=== PATIENT | female | born 1980 | race Caucasian/White ===

== ENCOUNTER 2020-01-21 09:30 | Inpatient (IN) ==
[2020-01-21] MEDS ORDERED: PROMETHAZINE 25 MG/ML VIAL IV PRN (10:09)
[2020-01-21] MEDS ORDERED: IPRATROPIUM/ALBUTEROL 3 ML AMPUL.NEB NEB PRN (10:09)
[2020-01-21] MEDS ORDERED: LOPERAMIDE 2 MG CAPSULE PO PRN (10:12)
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
[2020-01-21] MEDS: NICOTINE 21 MG PATCH TOPICAL SCH (11:00)
[2020-01-21 11:13] LABS: Basophils # (Auto) 0.05 K/mcL (0.00-0.30); Basophils % (Auto) 0.6 % (0.0-2.0); Eosinophils # (Auto) 0.08 K/mcL (0.00-0.70); Granulocytes % (Auto) 59.2 % (38.0-78.0); Hematocrit 41.6 % (34.1-44.9); Hemoglobin 14.5 g/dL (11.2-15.7); Lymphocytes # (Auto) 2.67 K/mcL (1.50-4.80); Lymphocytes % (Auto) 32.4 % (15.5-49.0); Mean Cell Volume 92.9 fL (80.0-100.0); Mean Corpuscular HGB Conc 34.9 g/dL (31.0-36.0); Mean Platelet Volume 10.1 fL (7.4-10.4); Monocytes # (Auto) 0.56 K/mcL (0.10-0.90); Monocytes % (Auto) 6.8 % (1.0-12.0); Platelet Count 284 K/mcL (140-440); RBC 4.48 M/mcL (3.59-5.38); Red Cell Distribution Width 12.6 % (11.5-14.5); WBC 8.2 K/mcL (4.50-11.00)
[2020-01-21 11:33] LABS: ALT/SGPT 43 U/l (0-40); AST/SGOT 31 U/l (0-37); Albumin 4.2 gm/dL (3.2-5.2); Albumin/Globulin Ratio 1.4 (1.0-2.3); Alkaline Phosphatase 46 U/L (39-117); Bilirubin,Direct < 0.2 mg/dL (0.0-0.3); Bilirubin,Total 0.3 mg/dL (0.0-1.0); Blood Urea Nitrogen 8 mg/dl (6-20); Calcium 9.2 mg/dl (8.6-10.4); Carbon Dioxide 20 mmol/L (22-30); Chloride 106 mmol/L (96-108); Globulin 2.9 gm/dL (2.2-3.7); Glomerular Filtration Rate 81; Glucose 124 mg/dL (70-105); Lactate Dehydrogenase 177 U/L (94-250); Phosphorous 2.8 mg/dL (2.7-4.5); Triglycerides 81 mg/dl (<150); Uric Acid 5.3 mg/dL (2.5-8.0)
[2020-01-21] MEDS: 0.9 % SODIUM CHLORIDE 10 ML SYRINGE IV SCH ×3 (17:08→22:35)
[2020-01-21] MEDS: chlordiazePOXIDE 25 MG CAPSULE PO PRN (17:34)
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
[2020-01-21] MEDS ORDERED: MIRTAZAPINE 15 MG TABLET PO PRN (20:05)
[2020-01-21] MEDS ORDERED: QUEtiapine 25 MG TABLET PO SCH (21:00)
[2020-01-21] MEDS ORDERED: RISPERIDONE 2 MG PO SCH (21:00)
[2020-01-21] MEDS: risperiDONE 1 MG TABLET PO SCH (21:36)
[2020-01-21] MEDS: GABAPENTIN 300 MG CAPSULE PO SCH (21:36)
[2020-01-21] MEDS: QUEtiapine 100 MG TABLET PO SCH (21:36)
[2020-01-22] MEDS: 0.9 % SODIUM CHLORIDE 10 ML SYRINGE IV SCH ×3 (04:17→21:27)
[2020-01-22] MEDS: ONDANSETRON 4 MG/2 ML VIAL IV PRN (04:17)
[2020-01-22] MEDS: chlordiazePOXIDE 25 MG CAPSULE PO PRN ×3 (04:17→21:26)
[2020-01-22 06:50] LABS: Thyroid Stimulating Hormone 2.18 uIU/ml (0.27-5.01)
[2020-01-22 06:58] LABS: HCG,Serum NEGATIVE <10 (<10 mIU/ml)
--- NOTE | 2020-01-22 07:45 | Internal Med Progress Note ---
Medical - PN: Subj Patient information: Note initiated : 01/22/20 at 7:43 am Service Date, if different from initiated Date: [] Patient: Nereyda Roy a 39 y/o F admitted on 01/21/20 for Detox. Chief Complaint: [] Interval history: Ms. Roy is a 39 year old F Presents for alcoholic detox under the care of Dr. Connell. Past history of methamphetamine but has stopped as of 2 years ago. She was sober for 11 years however started drinking again and was at the [facility] in October. Continues to drink daily. She smokes marijuana and cigarettes. She has chronic diarrhea. She complains of some occasional nausea and shakiness. Last alcoholic drink was yesterday. 01/21 Had some headache and nausea overnight. Otherwise no new complaints. Review of Systems: denies fever/chills/vomiting/chest or abdominal pain/cough/dyspnea/diarrhea. Otherwise see above. - Constitutional Vitals: Vital Signs Temp Pulse Resp BP Pulse Ox 98.1 F 68 16 112/68 96 01/22/20 07:34 01/22/20 07:34 01/22/20 07:34 01/22/20 07:34 01/22/20 07:34 Period Temp Pulse Resp BP Sys/Mclean Pulse Ox Last 24 Hr 97.3 F-98.3 F 68-90 16-24 99-123/62-85 96-98 Intake and Output 01/21/20 01/22/20 01/22/20 21:59 05:59 13:59 Intake Total 440 500 700 Balance 440 500 700 Weight 96.162 kg Intake & Output: Intake & Output 01/21/20 01/22/20 01/22/20 21:59 05:59 13:59 Intake Total 440 500 700 Balance 440 500 700 Weight 96.162 kg Intake: Oral 440 500 700 Other: Meal Dinner Percent of Meal Consumed 75% Feeding Ability Independent Urine Odor Normal # Voids 1 1 Exam: General: Alert, Awake, No acute Distress Eyes/N/T: EOMI, , Head/Neck: neck supple, CV: RRR, No murmurs, Pulm: Clear b/l, no wheezing/rhonchi/rales Abd: soft, nontender, +BS x4 Ext: no clubbing/cyanosis/edema Neuro: Alert, no focal deficits, moves all extremities, Skin: warm/dry Medical - PN: Obj Da - Labs CBC & Chem 7: 01/21/20 10:32 01/21/20 10:32 Labs: Abnormal Lab Results 01/21/20 10:32 Carbon Dioxide 20 L Glucose 124 H GGT 102 H ALT 43 H Meds: Medications Acetaminophen (Tylenol) 650 mg PO Q6HP PRN; Protocol PRN Reason: Per Pain Protocol/Fever > 101 Albuterol/Ipratropium (Duoneb) 3 ml NEB Q4HP PRN PRN Reason: Shortness Of Breath Chlordiazepoxide HCl (Librium) 25 mg PO Q6-8HP PRN PRN Reason: Alcohol Withdrawal Stop: 01/22/20 10:59 Last Admin: 01/22/20 04:17 Dose: 25 mg Documented by: Chlordiazepoxide HCl (Librium) 0 mg PO Q8HP PRN PRN Reason: Alcohol Withdrawal Stop: 01/23/20 10:59 Chlordiazepoxide HCl (Librium) 0 mg PO QDP PRN PRN Reason: Alcohol Withdrawal Stop: 01/24/20 10:59 Gabapentin (Neurontin) 300 mg PO BID [facility] Last Admin: 01/21/20 21:36 Dose: 300 mg Documented by: Loperamide HCl (Imodium) 2 mg PO DAILYP PRN PRN Reason: Diarrhea Mirtazapine (Remeron) 15 mg PO HS PRN PRN Reason: difficulty sleep Nicotine (Nicoderm) 21 mg TOPICAL DAILY@1000 LUCAS Last Admin: 01/21/20 11:00 Dose: 21 mg Documented by: Ondansetron HCl (Zofran) 4 mg IV Q4HP PRN PRN Reason: Nausea And Vomiting Last Admin: 01/22/20 04:17 Dose: 4 mg Documented by: Promethazine HCl (Phenergan) 12.5 mg IV Q6HP PRN PRN Reason: Nausea And Vomiting Quetiapine Fumarate (Seroquel) 100 mg PO HS [facility] Last Admin: 01/21/20 21:36 Dose: 100 mg Documented by: Risperidone (Risperdal) 2 mg PO BID [facility] Last Admin: 01/21/20 21:36 Dose: 2 mg Documented by: Sodium Chloride (Saline Flush) 10 ml IV Q8 [facility] Last Admin: 01/22/20 04:17 Dose: 10 ml Documented by: Medical - PN: A/P - Time Spent With Patient Total time spent is greater than 50% in coordination of care (as documented) at patient's floor/unit and/or counseling patient: - Narrative A/P Narrative: A: *Alcohol abuse/dependence: Here for voluntary detox *Tobacco abuse: *Schizoaffective disorder *Anxiety: *PTSD: *chronic diarrhea P: -Treatment per Dr. Connell -psych meds per Dr. Connell -prn imodium, tylenol for headaches -ppx: Ambulation Medical - PN: Qual - Stroke Symptom Onset Unknown: No - VTE Deep Vein Thrombosis/Pulmonary Embolism Present on Admission: No
[2020-01-22] MEDS: GABAPENTIN 300 MG CAPSULE PO SCH ×3 (08:59→21:26)
[2020-01-22] MEDS: ACETAMINOPHEN 325 MG TABLET PO PRN ×2 (09:00→19:28)
[2020-01-22] MEDS: risperiDONE 1 MG TABLET PO SCH ×2 (09:01→21:26)
[2020-01-22] MEDS: NICOTINE 21 MG PATCH TOPICAL SCH (11:15)
--- NOTE | 2020-01-22 12:02 | Internal Med Progress Note ---
Medical - PN: Subj Patient information: Note initiated : 01/22/20 at 11:59 am Service Date, if different from initiated Date: [] Patient: Nereyda Roy 39 y/o F admitted on 01/21/20 for Detox. Chief Complaint: alcohol withdrawal Patient reports headache and nausea but states diarrhea has resolved. She denies chest pain, SOB, abdominal pain. States that anxiety is manageable as is her depression. Denies auditory, visual or tactile hallucinations. Experiences mild tremors. Ambulates without difficulty and no difficulty taking in fluids or solids. - Constitutional Vitals: Vital Signs Temp Pulse Resp BP Pulse Ox 98.0 F 67 18 107/71 95 01/22/20 11:26 01/22/20 11:26 01/22/20 11:26 01/22/20 11:26 01/22/20 11:26 Period Temp Pulse Resp BP Sys/Mclean Pulse Ox Last 24 Hr 97.3 F-98.3 F 67-90 16-24 99-113/62-77 95-98 Intake and Output 01/21/20 01/22/20 01/22/20 21:59 05:59 13:59 Intake Total 705 256 5404 Balance 503 770 0808 Weight 212 lb Intake & Output: Intake & Output 01/21/20 01/22/20 01/22/20 21:59 05:59 13:59 Intake Total 019 449 6780 Balance 123 592 9621 Weight 212 lb Intake: Oral 552 529 2475 Other: Meal Dinner Breakfast Percent of Meal Consumed 75% 100% Feeding Ability Independent Independent Urine Odor Normal # Voids 1 1 General appearance: average body habitus, cooperative - Head Head exam: Present: atraumatic, normocephalic - Eye Eye exam: Present: EOMI, normal appearance, PERRL - ENT ENT exam: Present: mucous membranes moist - Neck Neck exam: Present: full ROM - Respiratory Respiratory exam: Present: normal respiratory exam, CTAB. Absent: rales, rhonchi, wheezes - Cardiovascular Cardiovascular exam: Present: normal rate and rhythm. Absent: JVD - GI/Abdominal GI/Abdominal exam: Present: normal bowel sounds, soft. Absent: guarding, mass, rebound, tenderness - Extremities Exam Extremities exam: Present: full ROM. Absent: calf tenderness, pedal edema - Neurological Exam Neurological exam: Present: alert, CN II-XII intact, oriented X3 - Psychiatric Psychiatric exam: Present: anxious. Absent: homicidal ideation, suicidal ideation Medical - PN: Obj Da - Labs CBC & Chem 7: 01/21/20 10:32 01/21/20 10:32 Labs: Abnormal Lab Results 01/21/20 10:32 Carbon Dioxide 20 L Glucose 124 H GGT 102 H ALT 43 H Meds: Medications Acetaminophen (Tylenol) 650 mg PO Q6HP PRN; Protocol PRN Reason: Per Pain Protocol/Fever > 101 Last Admin: 01/22/20 09:00 Dose: 650 mg Documented by: Albuterol/Ipratropium (Duoneb) 3 ml NEB Q4HP PRN PRN Reason: Shortness Of Breath Chlordiazepoxide HCl (Librium) 0 mg PO Q8HP PRN PRN Reason: Alcohol Withdrawal Stop: 01/23/20 10:59 Chlordiazepoxide HCl (Librium) 0 mg PO QDP PRN PRN Reason: Alcohol Withdrawal Stop: 01/24/20 10:59 Gabapentin (Neurontin) 300 mg PO BID [facility] Last Admin: 01/22/20 08:59 Dose: 300 mg Documented by: Loperamide HCl (Imodium) 2 mg PO DAILYP PRN PRN Reason: Diarrhea Mirtazapine (Remeron) 15 mg PO HS PRN PRN Reason: difficulty sleep Nicotine (Nicoderm) 21 mg TOPICAL DAILY@1000 [facility] Last Admin: 01/22/20 11:15 Dose: 21 mg Documented by: Ondansetron HCl (Zofran) 4 mg IV Q4HP PRN PRN Reason: Nausea And Vomiting Last Admin: 01/22/20 04:17 Dose: 4 mg Documented by: Promethazine HCl (Phenergan) 12.5 mg IV Q6HP PRN PRN Reason: Nausea And Vomiting Quetiapine Fumarate (Seroquel) 100 mg PO HS [facility] Last Admin: 01/21/20 21:36 Dose: 100 mg Documented by: Risperidone (Risperdal) 2 mg PO BID [facility] Last Admin: 01/22/20 09:01 Dose: 2 mg Documented by: Sodium Chloride (Saline Flush) 10 ml IV Q8 [facility] Last Admin: 01/22/20 04:17 Dose: 10 ml Documented by: Medical - PN: A/P - Time Spent With Patient Total time spent is greater than 50% in coordination of care (as documented) at patient's floor/unit and/or counseling patient: 25 - 35 minutes (1) Alcohol withdrawal Status: Acute Current Visit: Yes (2) Sedative, hypnotic or anxiolytic abuse Status: Acute Current Visit: Yes (3) Chronic schizophrenia Status: Acute Current Visit: No (4) Tobacco use disorder Status: Acute Current Visit: Yes (5) Cannabis use disorder, mild, abuse Status: Acute Current Visit: Yes - Narrative A/P Narrative: Patient continues to be in active alcohol withdrawal. CIWA 2, tolerating librium taper well. Expressed concern being afraid that she would relapse. Discussed MAT as well as support systems such as AA. Continue with the taper, patient is to get 75mg librium today. Reviewed neg HCG. Elevated LFTs, pending hepatitis C panel. Close follow up one day Medical - PN: Qual - Stroke Symptom Onset Unknown: No - VTE Deep Vein Thrombosis/Pulmonary Embolism Present on Admission: No
[2020-01-22] MEDS: QUEtiapine 100 MG TABLET PO SCH (21:26)
[2020-01-23] MEDS: ACETAMINOPHEN 325 MG TABLET PO PRN ×3 (05:25→20:40)
[2020-01-23] MEDS: 0.9 % SODIUM CHLORIDE 10 ML SYRINGE IV SCH ×3 (05:26→20:39)
--- NOTE | 2020-01-23 07:49 | Internal Med Progress Note ---
Medical - PN: Subj Patient information: Note initiated : 01/23/20 at 7:49 am Service Date, if different from initiated Date: [] Patient: Nereyda Roy a 39 y/o F admitted on 01/21/20 for Detox. Chief Complaint: [] Interval history: Ms. Roy is a 39 year old F Presents for alcoholic detox under the care of Dr. Connell. Past history of methamphetamine but has stopped as of 2 years ago. She was sober for 11 years however started drinking again and was at the [facility] in October. Continues to drink daily. She smokes marijuana and cigarettes. She has chronic diarrhea. She complains of some occasional nausea and shakiness. Last alcoholic drink was yesterday. 01/21 Had some headache and nausea overnight. Otherwise no new complaints. 01/22 Slept better. Has mild headache. Seems to be feeling a lot better. Review of Systems: denies fever/chills/vomiting/chest or abdominal pain/cough/dyspnea/diarrhea. Otherwise see above. - Constitutional Vitals: Vital Signs Temp Pulse Resp BP Pulse Ox 98.3 F 65 16 112/77 97 01/23/20 07:15 01/23/20 07:15 01/23/20 07:15 01/23/20 07:15 01/23/20 07:15 Period Temp Pulse Resp BP Sys/Mclean Pulse Ox Last 24 Hr 97.3 F-98.3 F 61-74 16-20 103-122/65-77 93-97 Intake and Output 01/22/20 01/23/20 01/23/20 21:59 05:59 13:59 Intake Total 2180 0 Balance 2180 0 Weight 96.615 kg Intake & Output: Intake & Output 01/22/20 01/23/20 01/23/20 21:59 05:59 13:59 Intake Total 2180 0 Balance 2180 0 Weight 96.615 kg Intake: Oral 2180 0 Other: Meal Dinner Percent of Meal Consumed 100% Feeding Ability Independent Urine Odor Normal # Voids 1 1 Exam: General: Alert, Awake, No acute Distress Eyes/N/T: EOMI, , Head/Neck: neck supple, CV: RRR, No murmurs, Pulm: Clear b/l, no wheezing/rhonchi/rales Abd: soft, nontender, +BS x4 Ext: no clubbing/cyanosis/edema Neuro: Alert, no focal deficits, moves all extremities, Skin: warm/dry Medical - PN: Obj Da - Labs CBC & Chem 7: 01/21/20 10:32 01/21/20 10:32 Labs: Abnormal Lab Results 01/21/20 10:32 Carbon Dioxide 20 L Glucose 124 H GGT 102 H ALT 43 H Meds: Medications Acetaminophen (Tylenol) 650 mg PO Q6HP PRN; Protocol PRN Reason: Per Pain Protocol/Fever > 101 Last Admin: 01/23/20 05:25 Dose: 650 mg Documented by: Albuterol/Ipratropium (Duoneb) 3 ml NEB Q4HP PRN PRN Reason: Shortness Of Breath Chlordiazepoxide HCl (Librium) 0 mg PO Q8HP PRN PRN Reason: Alcohol Withdrawal Stop: 01/23/20 10:59 Last Admin: 01/22/20 21:26 Dose: 25 mg Documented by: Chlordiazepoxide HCl (Librium) 0 mg PO QDP PRN PRN Reason: Alcohol Withdrawal Stop: 01/24/20 10:59 Gabapentin (Neurontin) 300 mg PO TID [facility] Last Admin: 01/22/20 21:26 Dose: 300 mg Documented by: Loperamide HCl (Imodium) 2 mg PO DAILYP PRN PRN Reason: Diarrhea Mirtazapine (Remeron) 15 mg PO HS PRN PRN Reason: difficulty sleep Nicotine (Nicoderm) 21 mg TOPICAL DAILY@1000 [facility] Last Admin: 01/22/20 11:15 Dose: 21 mg Documented by: Ondansetron HCl (Zofran) 4 mg IV Q4HP PRN PRN Reason: Nausea And Vomiting Last Admin: 01/22/20 04:17 Dose: 4 mg Documented by: Promethazine HCl (Phenergan) 12.5 mg IV Q6HP PRN PRN Reason: Nausea And Vomiting Quetiapine Fumarate (Seroquel) 100 mg PO HS [facility] Last Admin: 01/22/20 21:26 Dose: 100 mg Documented by: Risperidone (Risperdal) 2 mg PO BID [facility] Last Admin: 01/22/20 21:26 Dose: 2 mg Documented by: Sodium Chloride (Saline Flush) 10 ml IV Q8 [facility] Last Admin: 01/23/20 05:26 Dose: 10 ml Documented by: Medical - PN: A/P - Time Spent With Patient Total time spent is greater than 50% in coordination of care (as documented) at patient's floor/unit and/or counseling patient: - Narrative A/P Narrative: A: *Alcohol abuse/dependence: Here for voluntary detox *Tobacco abuse: *Schizoaffective disorder *Anxiety: *PTSD: *chronic diarrhea: P: -Treatment per Dr. Connell -psych meds per Dr. Connell -prn imodium, tylenol for headaches -ppx: Ambulation Medical - PN: Qual - Stroke Symptom Onset Unknown: No - VTE Deep Vein Thrombosis/Pulmonary Embolism Present on Admission: No
[2020-01-23] MEDS: GABAPENTIN 300 MG CAPSULE PO SCH ×3 (09:31→20:40)
[2020-01-23] MEDS: risperiDONE 1 MG TABLET PO SCH ×2 (09:31→20:40)
[2020-01-23] MEDS: NICOTINE 21 MG PATCH TOPICAL SCH (09:31)
[2020-01-23] MEDS: BACLOFEN 10 MG TABLET PO SCH ×2 (09:58→20:40)
[2020-01-23] MEDS ORDERED: chlordiazePOXIDE 25 MG CAPSULE PO PRN (10:14)
--- NOTE | 2020-01-23 12:15 | Internal Med Progress Note ---
Medical - PN: Subj Patient information: Note initiated : 01/23/20 at 12:13 pm Service Date, if different from initiated Date: [] Patient: Nereyda Roy 39 y/o F admitted on 01/21/20 for Detox. Chief Complaint: alcohol withdrawal Patient reports that she is starting to feel better and sweats have resolved. She continues to feel mildly tremulous and has a mild headache. Patient states that diarrhea and nausea has resolved and she has had improvement in appetite. Denies auditory, visual or tactile hallucinations. Anxiety is improving and de nies depression. - Constitutional Vitals: Vital Signs Temp Pulse Resp BP Pulse Ox 97.3 F 74 18 106/70 97 01/23/20 11:56 01/23/20 11:56 01/23/20 11:56 01/23/20 11:56 01/23/20 11:56 Period Temp Pulse Resp BP Sys/Mclean Pulse Ox Last 24 Hr 97.3 F-98.3 F 61-74 16-20 103-122/65-77 93-97 Intake and Output 01/22/20 01/23/20 01/23/20 21:59 05:59 13:59 Intake Total 2180 0 500 Balance 2180 0 500 Weight 213 lb Intake & Output: Intake & Output 01/22/20 01/23/20 01/23/20 21:59 05:59 13:59 Intake Total 2180 0 500 Balance 2180 0 500 Weight 213 lb Intake: Oral 2180 0 500 Other: Meal Dinner Breakfast Percent of Meal Consumed 100% 100% Feeding Ability Independent Independent Urine Odor Normal # Voids 1 1 General appearance: average body habitus, cooperative, no acute distress - Head Head exam: Present: normocephalic - Eye Eye exam: Present: EOMI, PERRL. Absent: nystagmus - ENT ENT exam: Present: mucous membranes moist - Respiratory Respiratory exam: Present: normal respiratory exam, CTAB. Absent: rales, rho nchi, wheezes - Cardiovascular Cardiovascular exam: Present: normal rate and rhythm. Absent: JVD, systolic murmur - GI/Abdominal GI/Abdominal exam: Present: normal bowel sounds, soft. Absent: guarding, mass, organomegaly, rebound, tenderness - Extremities Exam Extremities exam: Present: full ROM. Absent: calf tenderness, pedal edema - Neurological Exam Neurological exam: Present: alert, CN II-XII intact, oriented X3 - Psychiatric Psychiatric exam: Present: anxious, normal affect. Absent: suicidal ideation Medical - PN: Obj Da - Labs CBC & Chem 7: 01/21/20 10:32 01/21/20 10:32 Labs: Abnormal Lab Results 01/21/20 10:32 Carbon Dioxide 20 L Glucose 124 H GGT 102 H ALT 43 H Meds: Medications Acetaminophen (Tylenol) 650 mg PO Q6HP PRN; Protocol PRN Reason: Per Pain Protocol/Fever > 101 Last Admin: 01/23/20 05:25 Dose: 650 mg Documented by: Albuterol/Ipratropium (Duoneb) 3 ml NEB Q4HP PRN PRN Reason: Shortness Of Breath Baclofen (Lioresal) 10 mg PO BID [facility] Last Admin: 01/23/20 09:58 Dose: 10 mg Documented by: Chlordiazepoxide HCl (Librium) 0 mg PO QDP PRN PRN Reason: Alcohol Withdrawal Stop: 01/24/20 10:59 Gabapentin (Neurontin) 300 mg PO TID [facility] Last Admin: 01/23/20 09:31 Dose: 300 mg Documented by: Loperamide HCl (Imodium) 2 mg PO DAILYP PRN PRN Reason: Diarrhea Mirtazapine (Remeron) 15 mg PO HS PRN PRN Reason: difficulty sleep Nicotine (Nicoderm) 21 mg TOPICAL DAILY@1000 [facility] Last Admin: 01/23/20 09:31 Dose: 21 mg Documented by: Ondansetron HCl (Zofran) 4 mg IV Q4HP PRN PRN Reason: Nausea And Vomiting Last Admin: 01/22/20 04:17 Dose: 4 mg Documented by: Promethazine HCl (Phenergan) 12.5 mg IV Q6HP PRN PRN Reason: Nausea And Vomiting Quetiapine Fumarate (Seroquel) 100 mg PO HS [facility] Last Admin: 01/22/20 21:26 Dose: 100 mg Documented by: Risperidone (Risperdal) 2 mg PO BID [facility] Last Admin: 01/23/20 09:31 Dose: 2 mg Documented by: Sodium Chloride (Saline Flush) 10 ml IV Q8 [facility] Last Admin: 01/23/20 05:26 Dose: 10 ml Documented by: Medical - PN: A/P - Time Spent With Patient Total time spent is greater than 50% in coordination of care (as documented) at patient's floor/unit and/or counseling patient: 25 - 35 minutes (1) Alcohol withdrawal Status: Acute Current Visit: Yes (2) Sedative, hypnotic or anxiolytic abuse Status: Acute Current Visit: Yes (3) Chronic schizophrenia Status: Acute Current Visit: No (4) Tobacco use disorder Status: Acute Current Visit: Yes (5) Cannabis use disorder, mild, abuse Status: Acute Current Visit: Yes - Narrative A/P Narrative: Patient in active alcohol withdrawal, improving. CIWA scores one day ago ranged from 8-9. Today CIWA is 4 at bedside. Patient received 75mg Librium in the last 24 hours. We'll start baclofen 10mg bid to assist with withdrawal symptoms and anxiety. Continue close monitoring. Continue with Librium taper. Close follow up one day. Medical - PN: Qual - Stroke Symptom Onset Unknown: No - VTE Deep Vein Thrombosis/Pulmonary Embolism Present on Admission: No
[2020-01-23] MEDS: QUEtiapine 100 MG TABLET PO SCH (20:40)
[2020-01-23] MEDS ORDERED: BACLOFEN 10 MG TABLET PO SCH (21:00)
[2020-01-24] MEDS: 0.9 % SODIUM CHLORIDE 10 ML SYRINGE IV SCH ×2 (04:38→14:45)
[2020-01-24] MEDS: ONDANSETRON 4 MG/2 ML VIAL IV PRN (04:39)
[2020-01-24] MEDS: ACETAMINOPHEN 325 MG TABLET PO PRN (04:39)
--- NOTE | 2020-01-24 09:10 | Internal Med Progress Note ---
Medical - PN: Subj Patient information: Note initiated : 01/24/20 at 9:08 am Service Date, if different from initiated Date: [] Patient: Nereyda Roy 39 y/o F admitted on 01/21/20 for Detox. Chief Complaint: alcohol withdrawal Patient states that she continues to have mild headache, history of TBI. Denies nausea, vomiting, blurry vision, dizziness. Patient states diarrhea and abdominal pain resolved. Denies chest pain, SOB, auditory, visual or tactile hallucinations. Denies depression, anxiety but struggling with cravings for alcohol. - Constitutional Vitals: Vital Signs Temp Pulse Resp BP Pulse Ox 98.6 F 68 16 104/68 95 01/24/20 07:15 01/24/20 07:15 01/24/20 07:15 01/24/20 07:15 01/24/20 07:15 Period Temp Pulse Resp BP Sys/Mclean Pulse Ox Last 24 Hr 97.3 F-98.6 F 63-74 16-18 88-118/57-80 94-97 Intake and Output 01/23/20 01/24/20 01/24/20 21:59 05:59 13:59 Intake Total 1860 340 Balance 1860 340 Weight 212 lb Intake & Output: Intake & Output 01/23/20 01/24/20 01/24/20 21:59 05:59 13:59 Intake Total 1860 340 Balance 1860 340 Weight 212 lb Intake: Oral 1860 340 Other: Meal Dinner Percent of Meal Consumed 100% Feeding Ability Independent # Voids 4 1 General appearance: average body habitus, cooperative - Head Head exam: Present: atraumatic, normocephalic - Eye Eye exam: Present: EOMI, PERRL. Absent: nystagmus, scleral icterus - ENT ENT exam: Present: mucous membranes moist, normal oropharynx - Respiratory Respiratory exam: Present: normal respiratory exam, CTAB. Absent: rales, rhonchi, wheezes - Cardiovascular Cardiovascular exam: Present: normal rate and rhythm - GI/Abdominal GI/Abdominal exam: Present: normal bowel sounds, soft. Absent: guarding, mass, rebound, tenderness - Extremities Exam Extremities exam: Present: normal inspection. Absent: calf tenderness, full ROM - Neurological Exam Neurological exam: Present: abnormal gait, alert, altered, CN II-XII intact, normal gait, oriented X3 - Psychiatric Psychiatric exam: Present: normal affect. Absent: agitated, anxious, suicidal ideation Medical - PN: Obj Da - Labs CBC & Chem 7: 01/21/20 10:32 01/21/20 10:32 Labs: Abnormal Lab Results 01/21/20 10:32 Carbon Dioxide 20 L Glucose 124 H GGT 102 H ALT 43 H Meds: Medications Acetaminophen (Tylenol) 650 mg PO Q6HP PRN; Protocol PRN Reason: Per Pain Protocol/Fever > 101 Last Admin: 01/24/20 04:39 Dose: 650 mg Documented by: Albuterol/Ipratropium (Duoneb) 3 ml NEB Q4HP PRN PRN Reason: Shortness Of Breath Baclofen (Lioresal) 10 mg PO BID [facility] Last Admin: 01/23/20 20:40 Dose: 10 mg Documented by: Chlordiazepoxide HCl (Librium) 0 mg PO QDP PRN PRN Reason: Alcohol Withdrawal Stop: 01/24/20 10:59 Gabapentin (Neurontin) 300 mg PO TID [facility] Last Admin: 01/23/20 20:40 Dose: 300 mg Documented by: Loperamide HCl (Imodium) 2 mg PO DAILYP PRN PRN Reason: Diarrhea Mirtazapine (Remeron) 15 mg PO HS PRN PRN Reason: difficulty sleep Nicotine (Nicoderm) 21 mg TOPICAL DAILY@1000 [facility] Last Admin: 01/23/20 09:31 Dose: 21 mg Documented by: Ondansetron HCl (Zofran) 4 mg IV Q4HP PRN PRN Reason: Nausea And Vomiting Last Admin: 01/24/20 04:39 Dose: 4 mg Documented by: Promethazine HCl (Phenergan) 12.5 mg IV Q6HP PRN PRN Reason: Nausea And Vomiting Quetiapine Fumarate (Seroquel) 100 mg PO HS [facility] Last Admin: 01/23/20 20:40 Dose: 100 mg Documented by: Risperidone (Risperdal) 2 mg PO BID [facility] Last Admin: 01/23/20 20:40 Dose: 2 mg Documented by: Sodium Chloride (Saline Flush) 10 ml IV Q8 [facility] Last Admin: 01/24/20 04:38 Dose: 10 ml Documented by: Medical - PN: A/P - Time Spent With Patient Total time spent is greater than 50% in coordination of care (as documented) at patient's floor/unit and/or counseling patient: 25 - 35 minutes (1) Alcohol withdrawal Status: Acute Current Visit: Yes (2) Sedative, hypnotic or anxiolytic abuse Status: Acute Current Visit: Yes (3) Chronic schizophrenia Status: Acute Current Visit: No (4) Tobacco use disorder Status: Acute Current Visit: Yes (5) Cannabis use disorder, mild, abuse Status: Acute Current Visit: Yes - Narrative A/P Narrative: Patient's CIWA is 0. She is ambulating without difficulty but struggling with alcohol cravings. Discussed the importance of starting outpatient treatment. Counseled on the importance of avoiding alcohol and discussed the disease of addiction as well as MAT treatment. I will start patient on Naltrexone and closely follow up in the clinic within a week Coordinated care with Dr. Patterson and discussed recommendations for discharge of the patient. Medical - PN: Qual - Stroke Symptom Onset Unknown: No - VTE Deep Vein Thrombosis/Pulmonary Embolism Present on Admission: No
[2020-01-24] MEDS: risperiDONE 1 MG TABLET PO SCH (09:27)
[2020-01-24] MEDS: GABAPENTIN 300 MG CAPSULE PO SCH ×2 (09:27→15:00)
[2020-01-24] MEDS: BACLOFEN 10 MG TABLET PO SCH (09:28)
[2020-01-24] MEDS: NICOTINE 21 MG PATCH TOPICAL SCH (09:31)
--- NOTE | 2020-01-24 14:55 | Discharge Summary ---
Medical - DS: Prov Patient information: Note initiated : 01/24/20 at 2:50 pm Service Date, if different from initiated Date: [] Patient: Nereyda Roy a 39 y/o F admitted on 01/21/20 for Detox. Chief Complaint: [] Refer to H&P by Loius Partida D.O.> 01/21/20 Ms. Roy is a 39 year old F Presents for alcoholic detox under the care of Dr. Connell. Past history of methamphetamine but has stopped as of 2 years ago. She was sober for 11 years however started drinking again and was at the [facility] in October. Continues to drink daily. She smokes marijuana and cigarettes. She has chronic diarrhea. She complains of some occasional nausea and shakiness. Last alcoholic drink was yesterday. Date of admission: 01/21/20 09:46 Discharge date: 01/24/20 Primary care physician: Yanira Hare Consults: 01/21/20 09:51 Consult to Physician [CONS] Routine Comment: Consulting Provider: Winter Connell Reason For Exam: Physician to Consult Medical - DS: Meds - Discharge Medications Active and Home Medications: Home Medications quetiapine 25 mg tablet 100 mg PO QHS tab 09/06/18 [History Confirmed 01/21/20 Last Taken 01/20/20 21:00] risperidone 2 mg tablet 2 mg PO BID tab 12/05/18 [History Confirmed 01/21/20 Last Taken 01/21/20 08:00] gabapentin 300 mg capsule 300 mg PO BID #30 cap 01/16/20 [Rx Confirmed 01/21/20 Last Taken 01/21/20 0800] baclofen 10 mg tablet 10 mg PO BID #30 tab 01/24/20 [Rx Last Taken Unknown] naltrexone 50 mg tablet 50 mg PO QDAY #14 tab 01/24/20 [Rx Last Taken Unknown] Medical - DS: Hosp Hospital Course: *Alcohol abuse/dependence: Here for voluntary detox *Tobacco abuse: *Schizoaffective disorder *Anxiety: *PTSD: *chronic diarrhea: Ms. Roy is a 39 year old F Presents for alcoholic detox under the care of Dr. Connell. Past history of methamphetamine but has stopped as of 2 years ago. She was sober for 11 years however started drinking again and was at the [facility] in October. Continues to drink daily. She smokes marijuana and cigarettes. She has chronic diarrhea. She complains of some occasional nausea and shakiness. Last alcoholic drink was yesterday. 01/21 Had some headache and nausea overnight. Otherwise no new complaints. 01/22 Slept better. Has mild headache. Seems to be feeling a lot better. Today patient feels much better. She complains of mild headache. Otherwise she denies nausea, vomiting, dizziness, shortness of breath, diaphoresis, diarrhea, or dysuria. Vital signs are stable. Dr. Connell cleared to discharge this patient home today to follow with Dr. Connell next week. Dr. Connell will prescribe her discharge medications. Call PCP and Dr. Connell for medical issues. Donot drive until approval from PCP or Dr. Connell. Discharge diagnosis: Alcohol abuse/dependence - Time Spent with Patient Total time spent providing and/or coordinating discharge services: Medical - DS: Exam - Constitutional Vitals: Vital Signs Temp Pulse Resp BP Pulse Ox 01/24/20 13:00 98.6 F 74 16 108/67 95 01/24/20 07:15 98.6 F 68 16 104/68 95 01/24/20 04:28 97.8 F 66 16 98/57 96 01/24/20 00:02 97.9 F 63 16 88/57 94 01/23/20 20:26 97.7 F 70 16 107/71 97 01/23/20 17:00 97.9 F 66 18 118/80 96 Intake and Output 01/24/20 01/24/20 01/24/20 05:59 13:59 21:59 Intake Total 340 Balance 340 Intake: Oral 340 Other: # Voids 1 - Other Additional findings: General: Alert, Awake, No acute Distress Eyes/N/T: EOMI, PERRL, Head/Neck: neck supple, normocephalic atraumatic CV: RRR, No murmurs, normal s1/s2 Pulm: Clear b/l, no wheezing/rhonchi/rales Abd: soft, nontender, +BS x4 Ext: no clubbing/cyanosis/edema. mild fine tremor in both hands Neuro: Alert, no focal deficits, moves all extremities, CN 2-12 grossly intact, symmetrical strength b/l upper/lower, sensations intact b/l upper/lower Skin: warm/dry Medical - DS: A/P - Patient/Caregiver Discharge Instructions Activity: increase activity as tolerated Diet: Regular Diet Additional Instructions: May resume regular diet as tolerated. - Follow up Plan Follow up with: Winter Connell DO [Physician] - 01/29/20 9:30 am (please check in at 9:30 am.) Disposition: Home, Self-Care Care Plan Goals: This discharge packet is provided to you to help keep you informed about your care. We want to ensure you get everything you need when you go home. You will also be receiving a call from us in a few days to follow up with you and see how you are doing since your discharge. This gives us a chance to listen to any concerns you maybe experiencing since you were discharged or any additional needs you may have, as well as providing us feedback on your care experience. We strive to always provide excellent care and thank you for your feedback and for choosing [facility]. Prognosis: Fair Rehab Potential: Good Medical - DS: Qual - VTE Deep Vein Thrombosis/Pulmonary Embolism Present on Admission: No
[2020-01-25 07:00] LABS: HCV RNA Quant bPCR <1.18 NOT DETECTED LogIU/mL
== END 2020-01-24 15:15 | disposition home or self-care (01) | DRG 897 ==
LOC: MEDSUR 09:46
PROVIDERS: ADMIT Internal Medicine; ATTEND Internal Medicine